=== PATIENT | male | born 2000 | race Caucasian/White ===

== ENCOUNTER 2018-01-12 23:48 | Emergency (ER) | payer OTHER ==
[2018-01-13] MEDS ORDERED: BENZOCAINE UNIT DOSE SPRAY HURRICAINE MM ONE (00:07)
[2018-01-13] MEDS ORDERED: LIDOCAINE HCL 4% TOPICAL SOLN 50ML ONE (00:07)
--- NOTE | 2018-01-13 00:36 | EDPHY ---
H & P Stated Complaint: throat swellng after tx for strep throat 3 wk ago Time Seen by Provider: 01/12/18 23:59 HPI/ROS: Chief Complaint: Throat pain and swelling HPI: 17-year-old male presenting with worsening throat pain and swelling. He was diagnosed with strep throat 3 weeks ago and took a course of antibiotics. Patient states that several days later the pain returned. For the last 2 days he has had significantly worsening pain and today has had the sensation of swelling in his throat on the right-hand side. He has had some subjective fevers and chills at home. No nausea or vomiting. No difficulty breathing. He has pain with swallowing but is able swallow. ROS: 10 systems were reviewed and were negative except those elements noted in the HPI. PMH: Denies Social History: No smoking, no alcohol, no recreational drug use Family History: non-contributory Physical Exam: Gen: Awake, Alert, No Distress HEENT: Nose: no rhinorrhea Eyes: PERRLA, EOMI Mouth: Moist mucosa patient has significant peritonsillar swelling on the right-hand side with uvular shift. There is erythema and mild tonsillar exudate. No submandibular swelling. Neck: Supple, no JVD, no swelling or masses Chest: nontender, lungs clear to auscultation Heart: S1, S2 normal, no murmur Abd: Soft, non-tender, no guarding Back: no CVA tenderness, no midline tenderness Ext: no edema, non-tender Skin: no rash Neuro: CN II-XII intact, Sensation grossly intact, Strength 5/5 in bilateral upper and lower extremities - Personal History Current Tetanus/Diphtheria Vaccine: Yes Current Tetanus Diphtheria and Acellular Pertussis (TDAP): Yes - Medical/Surgical History Hx Asthma: No Hx Chronic Respiratory Disease: No Hx Diabetes: No Hx Cardiac Disease: No Hx Renal Disease: No Hx Cirrhosis: No Hx Alcoholism: No Hx HIV/AIDS: No Hx Splenectomy or Spleen Trauma: No - Social History Smoking Status: Never smoked Constitutional: Initial Vital Signs Temperature (C) 36.7 C 01/12/18 23:56 Heart Rate 93 01/12/18 23:56 Respiratory Rate 18 01/12/18 23:56 Blood Pressure 179/95 H 01/12/18 23:56 O2 Sat (%) 96 01/12/18 23:56 O2 Delivery Mode Room Air Allergies/Adverse Reactions: No Known Allergies Allergy (Unverified 01/12/18 23:57) Home Medications: Medication Instructions Recorded Amoxicillin/Clavulanate Pot 875 mg PO BID #20 tab 01/13/18 [Augmentin 875 MG TAB (*)] predniSONE 60 mg PO DAILY #15 tab 01/13/18 Medical Decision Making Procedures: Procedure: Drainage of peritonsillar abscess, indication: Peritonsillar abscess. Patient was anesthetized initially with topical 4% lidocaine, followed by hurricane spray and then followed by 2 mL of 1% lidocaine with epinephrine infiltration. Using an 18 gauge spinal needle with the sheath cut as a depth gauge a total of 3 mL of pus was aspirated from the right garcia Tonsillar bed. Patient tolerated the procedure well. There are no complications. Procedures performed by me. ED Course/Re-evaluation: Case discussed with Dr. Gama, ENT. He is requesting 3 g of Unasyn and 10 mg of Decadron IV. 1 L fluids. He will see the patient later this morning in his office. Departure - Departure Disposition: Home, Routine, Self-Care Clinical Impression: Peritonsillar abscess Condition: Good Instructions: Peritonsillar Abscess (ED) Additional Instructions: Follow up with Ear Nose and Throat doctor today, call 1st thing in the morning for an appointment. Please take your full course of antibiotics. Return to the emergency department for increasing swelling, difficulty breathing , difficulty swallowing, uncontrolled pain, or any other concerns. Referrals: Daniel Gama MD [Medical Doctor] - As per Instructions Prescriptions: Amoxicillin/Clavulanate Pot [Augmentin 875 MG TAB (*)] 875 mg PO BID #20 tab predniSONE 60 mg PO DAILY #15 tab
[2018-01-13] MEDS ORDERED: AMOXICILLIN/CLAVULANATE POT 875/125 MG TAB PO ONE (00:47)
[2018-01-13] MEDS ORDERED: DEXAMETHASONE 10 MG/ML VIAL IVP ONE (00:59)
[2018-01-13] MEDS ORDERED: NS 1,000 ML IV ONE (00:59)
[2018-01-13] MEDS ORDERED: AMPICILLIN/SULBACTAM 3 GM in NS 100 ML IV ONE (00:59)
[2018-01-13] MEDS ORDERED: ONDANSETRON 4 MG/2 ML VIAL IVP ONE (00:59)
[2018-01-13] MEDS ORDERED: DEXAMETHASONE 4 MG/ML VIAL ONE (01:04)
[2018-01-13] MEDS ORDERED: KETOROLAC 15 MG/1 ML SDV IVP ONE (01:17)
[2018-01-13 01:45] VITALS: BP 149/70
== END 2018-01-13 01:55 | disposition home or self-care (01) ==
DX: J36 Peritonsillar abscess (principal); E86.9 Volume depletion, unspecified
CPT/HCPCS: 96374; J0295; J1100; J1885; J2405